=== PATIENT | female | born 1960 | race Caucasian/White ===

== ENCOUNTER 2025-04-17 17:36 | Emergency (ER) | payer MEDICARE, OTHER ==
[~2025-04-17] VITALS: Ht 154.9 cm; Wt 76.2 kg
[2025-04-17 17:53] VITALS: BP 119/79
[2025-04-17] MEDS ORDERED: ASPI-1420 PO (18:00)
[2025-04-17] MEDS ORDERED: MULT-1275 PO (18:00)
[2025-04-17] MEDS ORDERED: CHOL200059 PO (18:00)
[2025-04-17] MEDS ORDERED: ATOR10TA PO (18:00)
[2025-04-17] MEDS ORDERED: FERR325T24 PO (18:00)
[2025-04-17] MEDS ORDERED: MECL-159 PO (18:00)
[2025-04-17] MEDS ORDERED: OMEP20TA5 PO (18:00)
[2025-04-17] MEDS ORDERED: ICOS1CAP PO (18:05)
[2025-04-17] MEDS ORDERED: AMLO1CAP6 PO (18:05)
[2025-04-17] MEDS ORDERED: MAGN400T52 PO (18:05)
[2025-04-17] MEDS ORDERED: ALBU8HFA4 INH (18:05)
[2025-04-17] MEDS ORDERED: NAPR500T6 PO (18:05)
[2025-04-17] MEDS ORDERED: IBUP-1955 PO (19:29)
[2025-04-17] MEDS ORDERED: HYDR-3972 PO (19:29)
[2025-04-17] MEDS ORDERED: DEXAMETHASONE SOD PHOSPHATE 4 MG INJ ONE (19:52)
[2025-04-17] MEDS ORDERED: HYDROCODONE/APAP 5-325MG TABLET ONE (19:52)
[2025-04-17] MEDS: DEXAMETHASONE SOD PHOSPHATE 4 MG INJ IM ONE (19:53)
[2025-04-17] MEDS: HYDROCODONE/APAP 5-325MG TABLET PO ONE (19:54)
[2025-04-17 20:12] VITALS: BP 132/84; TEMP 98.4; O2SAT 99
== END 2025-04-17 20:17 | disposition home or self-care (01) ==
LOC: ER 17:36
DX: M54.31 Sciatica, right side (principal); E78.5 Hyperlipidemia, unspecified; M06.9 Rheumatoid arthritis, unspecified; K21.9 Gastro-esophageal reflux disease without esophagitis; Z79.82 Long term (current) use of aspirin; Z79.899 Other long term (current) drug therapy; Z87.11 Personal history of peptic ulcer disease; Z86.69 Personal history of other diseases of the nervous system and sense organs
CPT/HCPCS: 99283; 96372; J1100; A4606; A4663